=== PATIENT | female | born 1975 | race Caucasian/White ===

== ENCOUNTER → 2016-07-05 | Outpatient (CLI) | payer OTHER ==
[~2016-07-05] MED LIST: ADVIL200 M1; BUSPAR PO; CALCIUM 1,0001 EACH PO; CARAFATE1 GM PO; CINNAMON ALPHA1 EACH PO; CINNAMON3.7 ML; HYDROCODON-ACE1 EAC9 PO; KEFLEX500 M1 PO; KRILL OIL500 MG PO; LANTUS100 U/ML SUBQ; LEXAPRO5 MG PO; LORTAB 5-325 M1 EACH PO; METFORMIN PO; NICAZEL TABLET1 EACH PO; NOVOLOG100 UNITS/ SUBQ; PAIN RELIEF325 MG PO; PENTASA250 MG PO; PHENERGAN25 M1 PO; PRILOSEC PO; TOPROL XL PO; VISTARIL50 MG PO; VITAMIN C250 M1 PO; [UNRECOGNIZED DRUG - REMARK] PO
--- NOTE | ~2016-07-05 | MY14 ---
[facility] A Service of [facility] RADIOLOGY TEXT RESULTS PATIENT: JONATHON HEBERT LOCATION: [facility] : 74 UNIT #: [id number] AGE: [address]: Favio Dawson MD SEX: F ORDER DR: [id number] [place], [place] [address] [id number] O MR#: [id number] Acc #: [id number] NAME: JONATHON HEBERT : 1975 SEX: F STUDY DATE/TIME: 07/05/2016 12:30 UNIT: [facility] ROOM: STUDY DESCRIPTION: MY Post Bx Film Attending Physician: Favio Dawson M.D. Referring Physician: Favio Dawson M.D. Ordering Physician: Favio Dawson M.D. Primary Care Physician: Favio Dawson M.D. MEDICAL IMAGING REPORT This report is preliminary unless electronic signature is present EXAM Left digital diagnostic mammogram COMPARISON Ultrasound-guided biopsy of the left breast on the same date as well as left breast ultrasound and bilateral diagnostic mammogram dated May 01, 2017. INDICATIONS 41-year-old female post ultrasound-guided biopsy of a suspicious left breast mass. Evaluation of biopsy clip placement. FINDINGS The biopsy clip is adequately positioned near the posterior aspect of the suspicious mass. There is no significant postbiopsy hematoma. IMPRESSION Adequate position of biopsy clip post ultrasound-guided sampling of suspicious left breast mass. BIRADS: Post procedure mammograms for marker placement. Dictated by... Jag Ellis M.D. THIS IS AN ELECTRONICALLY VERIFIED REPORT Jag Ellis M.D. at 07/07/2016 1:49 PM IRENE/ariela TD: 07/05/2016 23:14 JOB #: [id number] [facility] A Service of [facility] RADIOLOGY TEXT RESULTS PATIENT: JONATHON HEBERT LOCATION: [facility] : 73 UNIT #: [id number] AGE: [address]: Favio Dawson MD SEX: F ORDER DR: MEDICAL IMAGING REPORT COPY
--- NOTE | ~2016-07-05 | US200 ---
[facility] A Service of [facility] RADIOLOGY TEXT RESULTS PATIENT: JONATHON HEBERT LOCATION: [facility] : 73 UNIT #: [id number] AGE: [address]: Favio Dawson MD SEX: F ORDER DR: [id number] [facility] [address] [place], [place] [address] [id number] O MR#: [id number] Acc #: [id number] NAME: JONATHON HEBERT : 1975 SEX: F STUDY DATE/TIME: 07/10/2016 UNIT: [facility] ROOM: STUDY DESCRIPTION: US Breast Guided Bx 1st Lesion Attending Physician: Favio Dawson M.D. Referring Physician: Favio Dawson M.D. Ordering Physician: Favio Dawson M.D. Primary Care Physician: Favio Dawson M.D. 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 This is concordant with imaging. Given the size of the mass and question of other possible findings in the left breast on sonography, preoperative breast MRI is recommended if breast conservation is being considered. Our breast primary care md office has notified the patient's physician of these findings. Surgical consultation is recommended, and our breast primary care md office has also notified the patient's referring physician of these recommendations. JOB #[id number] Dictated by... Jag Ellis M.D. THIS IS AN ELECTRONICALLY VERIFIED REPORT Jag Ellis M.D. at 07/11/2016 12:56 AM Caden TD: 07/11/2016 00:28 JOB #: [id number] MEDICAL IMAGING REPORT COPY
== END | disposition home or self-care (01) ==
LOC: CWCC 09:59
DX: C50.812 Malignant neoplasm of overlapping sites of left female breast (principal)
CPT/HCPCS: 88305; G0204

== ENCOUNTER → 2016-07-19 | Outpatient (CLI) | payer OTHER ==
--- NOTE | ~2016-07-19 | NM8 ---
[facility] A Service of [facility] & [facility] RADIOLOGY TEXT RESULTS PATIENT: JONATHON HEBERT LOCATION: [facility] : 74 UNIT #: [id number] AGE: [address]: Mary Munguia MD SEX: F ORDER DR: [id number] [facility] [address] [place], [place] [address] [id number] O MR#: [id number] Acc #: [id number] NAME: JONATHON HEBERT : 1975 SEX: F STUDY DATE/TIME: 07/19/2016 13:38 UNIT: [facility] ROOM: STUDY DESCRIPTION: RI Bone or Joint Whole Body Attending Physician: Mary Munguia M.D. Referring Physician: Mary Munguia M.D. Ordering Physician: Mary Munguia M.D. Primary Care Physician: Favio Dawson M.D. MEDICAL IMAGING REPORT This report is preliminary unless electronic signature is present EXAM Whole-body bone scan HISTORY 41-year-old female recently diagnosed with breast cancer June 2016 now presents for staging and surveillance for metastatic disease. COMPARISON CT chest abdomen and pelvis 07/19/2016 FINDINGS Whole-body and selected spot images were performed of the axial and appendicular skeleton following the intravenous administration of 25.7 mCi technetium 99m MDP. Examination demonstrates normal symmetric uptake within the axial and appendicular skeleton. No abnormal uptake identified to suggest osseous metastatic disease. Mild thoracolumbar scoliosis. Bilateral renal activity and normal bladder activity noted. IMPRESSION No bone scan findings to suggest osseous metastatic disease. Dictated by... Jackelyn Bailey M.D. THIS IS AN ELECTRONICALLY VERIFIED REPORT Jackelyn Bailey M.D. at 07/21/2016 5:01 PM SKINNY/lori TD: 07/20/2016 12:33 JOB #: [id number] MEDICAL IMAGING REPORT COPY
--- NOTE | ~2016-07-19 | CT55 ---
[facility] A Service of [facility] RADIOLOGY TEXT RESULTS PATIENT: JONATHON HEBERT LOCATION: [facility] : 73 UNIT #: [id number] AGE: [address]: Mary Munguia MD SEX: F ORDER DR: [id number] [facility] [address] [place], [place] [address] [id number] O MR#: [id number] Acc #: [id number] NAME: JONATHON HEBERT : 1975 SEX: F STUDY DATE/TIME: 07/19/2016 11:22 UNIT: [facility] ROOM: STUDY DESCRIPTION: CT Chest W Con Attending Physician: Mary Munguia M.D. Referring Physician: Mary Munguia M.D. Ordering Physician: Mary Munguia M.D. Primary Care Physician: Favio Dawson M.D. MEDICAL IMAGING REPORT This report is preliminary unless electronic signature is present EXAM CT chest, 07/19/2016 INDICATION Malignant neoplasm of the lower inner quadrant of the left female breast. Breast cancer. Observation for metastatic disease. Initial CT staging. TECHNIQUE CT of the thorax utilizing 100 mL Isovue-370 IV contrast. Coronal and sagittal reconstructions were obtained. This CT exam was performed with one or more of the following radiation dose reduction techniques: automatic exposure control, adjustment of mA and/or kV according to patient size, and iterative reconstruction. COMPARISON Concurrent CT abdomen and pelvis dated 07/19/2016 and bone scan dated 07/19/2016. FINDINGS No pathologically enlarged mediastinal, hilar, or axillary lymph nodes. No pericardial or pleural effusion. Thoracic aorta is normal in caliber. No suspicious pulmonary findings. Central airways are patent. There is asymmetric mass-like density in the superior left breast corresponding with the patient's known breast malignancy. This area measures up to 5 cm in total diameter. Please refer to a separately dictated report for details on the abdomen. IMPRESSION [facility] A Service of [facility] RADIOLOGY TEXT RESULTS PATIENT: EMILEE,JONATHON LOCATION: [facility] : 73 UNIT #: [id number] AGE: [address]: Mary Munguia MD SEX: F ORDER DR: 1. A 5 cm mass in the superior left breast correlates with the patient's known breast malignancy. 2. No evidence of mediastinal, hilar, or axillary lymph nodes. 3. No evidence of metastatic disease in the chest. Dictated by... Maurilio Davis M.D. THIS IS AN ELECTRONICALLY VERIFIED REPORT Maurilio Davis M.D. at 07/20/2016 8:19 AM OPAL/eliazar TD: 07/19/2016 23:49 JOB #: [id number] MEDICAL IMAGING REPORT COPY
--- NOTE | ~2016-07-19 | CT2 ---
[facility] A Service of [facility] & [facility] RADIOLOGY TEXT RESULTS PATIENT: JONATHON HEBERT LOCATION: [facility] : 73 UNIT #: [id number] AGE: [address]: Mary Munguia MD SEX: F ORDER DR: [id number] [facility] [address] [place], [place] [address] [id number] O MR#: [id number] Acc #: [id number] NAME: JONATHON HEBERT : 1975 SEX: F STUDY DATE/TIME: 07/19/2016 11:22 UNIT: [facility] ROOM: STUDY DESCRIPTION: CT Abd and Pelv W Cont Attending Physician: Mary Munguia M.D. Referring Physician: Mary Munguia M.D. Ordering Physician: Mary Munguia M.D. Primary Care Physician: Favio Dawson M.D. MEDICAL IMAGING REPORT This report is preliminary unless electronic signature is present EXAM CT abdomen and pelvis, 07/19/2016 INDICATIONS Malignant neoplasm of the lower inner quadrant of the left female breast. Malignant neoplasm of the superior left breast. Observation for metastatic disease. Initial CT staging. TECHNIQUE CT of the abdomen and pelvis with p.o. and IV contrast. Coronal and sagittal reconstructions were obtained. This CT exam was performed with one or more of the following radiation dose reduction techniques: Automatic exposure control, adjustment of mA and/or kV according to patient size, and iterative reconstruction. COMPARISON Concurrent CT chest dated 07/19/2016 and bone scan dated 07/19/2016. FINDINGS There is no evidence of metastatic disease in the abdomen or pelvis. Low attenuation throughout the hepatic parenchyma indicates hepatic steatosis. The bowel is not dilated. No enlarged retroperitoneal or mesenteric lymph nodes. Patient has undergone previous right hemicolectomy with subsequent reanastomosis. PELVIS: Uterus and ovaries are unremarkable. There has been prior tubal ligation. Bladder is unremarkable. No enlarged pelvic or inguinal lymph nodes. No acute osseous abnormalities. There is some dextroscoliosis with rotation in the lower thoracic and lumbar spine. No suspicious osseous findings. STS. [facility] A Service of [facility] & [facility] RADIOLOGY TEXT RESULTS PATIENT: JONATHON HEBERT [id number] 73 UNIT #: [id number] AGE: [address]: Mary Munguia MD SEX: F ORDER DR: IMPRESSION 1. No evidence of metastatic disease in the abdomen or pelvis. 2. Low attenuation throughout the liver suggests background steatosis. Dictated by... Maurilio Davis M.D. THIS IS AN ELECTRONICALLY VERIFIED REPORT Maurilio Davis M.D. at 07/20/2016 8:19 AM OPAL/ariela TD: 07/19/2016 23:56 JOB #: [id number] MEDICAL IMAGING REPORT COPY
[2016-07-19 14:06] LABS: POC - CREATININE 1.05 mg/dL (0.44-1.03); POC - GFR >60.0 mL/min (>60)
== END | disposition home or self-care (01) ==
LOC: CNUC 08:33
PROVIDERS: Internal Medicine Hematology
DX: C50.312 Malignant neoplasm of lower-inner quadrant of left female breast (principal); N63 Unspecified lump in breast
CPT/HCPCS: 71260; 74177; 78306; 82565; A9503; Q9967

== ENCOUNTER → 2016-07-27 | Outpatient (CLI) | payer OTHER | END | disposition home or self-care (01) | LOC: SMRI 10:21 | DX: C50.312 Malignant neoplasm of lower-inner quadrant of left female breast (principal); I36.1 Nonrheumatic tricuspid (valve) insufficiency | CPT/HCPCS: 93306 ==

== ENCOUNTER → 2016-07-29 | Outpatient (CLI) | payer OTHER ==
--- NOTE | ~2016-07-29 | MR21 ---
[facility] A Service of [facility] RADIOLOGY TEXT RESULTS PATIENT: JONATHON HEBERT LOCATION: [facility] : 73 UNIT #: [id number] AGE: [address]: Mary Munguia MD SEX: F ORDER DR: [id number] O MR#: [id number] Acc #: [id number] NAME: JONATHON HEBERT : 1975 SEX: F STUDY DATE/TIME: 07/29/2016 16:50 UNIT: [facility] ROOM: STUDY DESCRIPTION: MR Breast WWo Contrast Mohesn Attending Physician: Mary Munguia M.D. Referring Physician: Mary Munguia M.D. Ordering Physician: Mary Munguia M.D. Primary Care Physician: Favio Dawson M.D. MRI CENTER REPORT This report is preliminary unless electronic signature is present. EXAM 1. MRI of bilateral breasts with and without contrast 2. Post processing including computer algorithm analysis of MRI data for lesion detection/characterization, pharmacokinetic analysis, with further physician review for interpretation of breast MRI. COMPARISONS Bilateral diagnostic mammogram dated 07/02/2016 as well as left breast ultrasound dated 07/02/2016. Ultrasound-guided biopsy and postbiopsy left diagnostic mammogram dated 07/05/2016. 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 Evaluation of the extent of malignancy was requested prior to definitive surgical therapy. TECHNIQUE: Axial bilateral T1, STIR, T1 fat saturation precontrast and T1 fat saturation postcontrast dynamic sequences were obtained in addition to sagittal bilateral VIBE precontrast and VIBE postcontrast sequences. Axial post contrast digital subtraction series were provided in addition to 3-D MIPs of each breast. CONTRAST 17 mL MultiHance FINDINGS There are scattered fibroglandular tissue. There is mild bilateral background breast enhancement. The exam is limited by patient motion. [facility] A Service of [facility] RADIOLOGY TEXT RESULTS PATIENT: JONATHON HEBERT LOCATION: [facility] : 73 UNIT #: [id number] AGE: [address]: Mary Munguia MD SEX: F ORDER DR: There are no enhancing masses or areas of suspicious apx-nhrv-kkor enhancement in the right breast. In the central posterior third of the left breast, there is an irregular heterogeneously enhancing mass with irregular and spiculated margins. This contains internal biopsy clip and denotes the patient's known biopsy-proven malignancy. This has jmhmda-jk-[id number] initial kinetics with delayed washout, plateau, and persistent enhancement. This malignant mass measures approximately 3.8 cm by 4.1 cm craniocaudal by 5.2 cm transverse. No axillary or internal mammary adenopathy. No enhancing lesions within the sternum or visualized liver. No abnormal skin enhancement or pectoralis enhancement. IMPRESSION 1. The known malignant mass is in the central posterior third of the left breast measuring 4.1 cm x 3.8 cm x 5.2 cm. There is no evidence of multifocal, multicentric, or contralateral breast malignancy. 2. No axillary or internal mammary adenopathy. No enhancing lesions within the liver or sternum. No abnormal pectoralis muscle enhancement or skin enhancement. BIRADS: 6 Known biopsy; proven malignancy. STAT * RESULT Dictated by... Jag Ellis M.D. THIS IS AN ELECTRONICALLY VERIFIED REPORT Jag Ellis M.D. at 08/03/2016 7:31 AM Sandrine TD: 08/02/2016 11:23 JOB #: [id number] MRI CENTER REPORT Page 1 of 1
== END | disposition home or self-care (01) ==
LOC: SMRI 15:29
DX: C50.312 Malignant neoplasm of lower-inner quadrant of left female breast (principal)
CPT/HCPCS: 0159T; A9581; C8908

== ENCOUNTER → 2016-08-04 | Outpatient (CLI) | payer OTHER ==
--- NOTE | ~2016-08-04 | EKG ---
PATIENT: JONATHON HEBERT UNIT #: [id number] Ventricular Rate: 98 BPM Atrial Rate: 98 BPM P-R Interval: 112 ms QRS Duration: 84 ms Q-T Interval: 354 ms QTC Calculation(Bezet): 451 ms P [place]: 39 degrees Calculated R [place]: 78 degrees Calculated T [place]: 3 degrees Diagnosis Line: Normal sinus rhythm Diagnosis Line: Normal ECG Diagnosis Line: When compared with ECG of 17-OCT-2015 11:18, Diagnosis Line: No significant change was found Diagnosis Line: Confirmed by MARIA DEL CARMEN BUTTERFIELD MD ([id number]) on 08/06/2016 Diagnosis Line: 9:29:38 AM INTERPRETING MD: GREER REED
[2016-08-04 13:01] LABS: BLOOD UREA NITROGEN 11 mg/dL (9-23); BUN/CREATININE RATIO 13.75; CALCIUM SERUM 8.9 mg/dL (8.4-10.2); CARBON DIOXIDE 24 mmol/L (22-31); CHLORIDE 103 mmol/L (100-111); CREATININE SERUM 0.8 mg/dL (0.6-1.4); GLOM FILT RATE Estimated ABOVE60 mL/min (>60); GLUCOSE FASTING 188 mg/dL (70-110); POTASSIUM 3.9 mmol/L (3.5-5.1); SODIUM 133 mmol/L (135-145)
== END | disposition home or self-care (01) ==
LOC: CAMB 11:23
PROVIDERS: Surgery
DX: Z01.818 Encounter for other preprocedural examination (principal)
CPT/HCPCS: 36415; 80048; 93005

== ENCOUNTER 2016-08-11 07:17 | Observation (INO) | payer OTHER ==
--- NOTE | ~2016-08-11 | OR ---
Unit #: [id number] #: [id number] Patient: JONATHON HEBERT [id number] [address] [address] [id number] I MR#: [id number] NAME: JONATHON HEBERT ROOM: 464 Date of Procedure: 08/11/2016 Admission Date: 08/11/2016 Surgeon: Neftali Sauceda M.D. : 1975 Attending Physician: Neftali Sauceda M.D. Referring Physician: Neftali Sauceda M.D. Primary Care Physician: Favio Mann M.D. OPERATIVE REPORT JOB NOTE: CC: CANCER AND BLOOD SPECIALIST AND DR. MANN PREOPERATIVE DIAGNOSIS Large carcinoma of left breast upper aspect with enlarged left axillary nodes on imaging. POSTOPERATIVE DIAGNOSIS Large carcinoma of left breast upper aspect with enlarged left axillary nodes on imaging. PROCEDURES PERFORMED 1. Left mastectomy. 2. Left axillary sentinel lymph node biopsy. 3. Left axillary dissection. ANESTHESIA General endotracheal anesthesia. MERCHANDISE COORDINATOR Lety Manuel, certified medical dosimetrist. FINDINGS The patient was found to have several enlarged nodes in addition to the sentinel node. Additional deep margin of pectoralis major muscle on the left side. FLUIDS 1000 mL crystalloid. ESTIMATED BLOOD LOSS 20 mL. DRAINS Vicente-Fleming 10 mm flat x2. TUBES None. SPECIMENS Sent to pathology. COMPLICATIONS Unit #: [id number] #: [id number] Patient: JONATHON HEBERT None apparent. CONDITION The patient tolerated the procedure well. INDICATIONS FOR PROCEDURE The patient is a 41-year-old white female, who was recently found to have a large mass in the left breast upper aspect. There was a second nodule found suspicious for multifocality and an enlarged node in the left axilla. She was presented with the several options. However, we feel because of multifocality, its size and enlarged node in the left axilla that we recommend proceeding with left mastectomy with left axillary sentinel lymph node biopsy. DESCRIPTION OF PROCEDURE After obtaining informed consent as well as receiving preoperative antibiotics, the patient who earlier in the day had undergone radioactive sulfur colloid injection beneath the left nipple-areolar complex, she was brought to the operating room. After adequate general endotracheal anesthesia was obtained, had sterile injection of Lymphazurin blue beneath the left nipple-areolar complex, it was massaged for 5 minutes by the clock. At this point in time, her left breast, chest, and axilla were prepped and draped in a sterile fashion. An elliptical incision was made with a knife making the upper incision above the area of the palpable mass and the inferior incision below the area of the palpable mass. It was taken down through the skin with a knife into the subdermal and subcutaneous tissues with electrocautery. A superior flap was raised to the level of the pectoralis major musculature. An inferior flap was raised to the lower chest wall. The breast was removed from medial to lateral at the level of the pectoralis major fascia with the fascia being taken with the specimen. In the area where the palpable mass was present, an additional deep margin and pectoralis major muscle was taken with electrocautery with good hemostasis. Hemostasis was also obtained with micro clips and 3-0 Vicryl suture ligatures. As the breast was removed from medial to lateral, the axillary contents were entered. Using the Neoprobe as a guide, a large node was found. However, there were multiple other enlarged nodes were found. They were present. The sentinel node was sent separately, however, additional palpable enlarged nodes were sent en bloc with the specimen. Hemostasis was obtained with micro clips and medium-sized clips and 3-0 Vicryl ties. The specimen was oriented for the pathologist and sent to pathology. The wound was copiously irrigated. All irrigation was evacuated. Good hemostasis was confirmed in all areas of dissection. Two 10-flat Vicente-Fleming drains were placed through separate stab incisions. One was placed over the pectoralis major muscle. The other was placed into the axilla. Each was secured with 3-0 silk suture. The subdermal tissues were reapproximated with a running 3-0 Vicryl suture. The skin was closed with 4-0 Vicryl subcuticular stitch. Benzoin and Steri-Strips were applied over the wound in an occlusive manner followed by fluffs in the concavity of the axilla and over the incision, Kerlix wrap around the chest wall and Shan wrap, and split dressings to the drains. Needle counts, sponge counts, and instrument counts were all correct as reported by the scrub nurse x2. The patient in stable condition. Dictated by... Neftali Sauceda M.D. Unit #: [id number] #: [id number] Patient: JONATHON HEBERT GREGORIA/jorge luis TD: 08/12/2016 01:52 JOB #: [id number] CC: [facility] OPERATIVE REPORT Page 1 of 1 X Neftali Sauceda MD X PROCEDURE OPERATIVE NOTE
--- NOTE | ~2016-08-11 | NM79 ---
[facility] A Service of [facility] & [facility] RADIOLOGY TEXT RESULTS PATIENT: JONATHON HEBERT LOCATION: [facility] 464-01 : [birth year] UNIT #: [id number] AGE: [address]: Neftali Sauceda MD SEX: F ORDER DR: [id number] [address] [facility] [place], [place] [address] [id number] O MR#: [id number] Acc #: [id number] NAME: JONATHON HEBERT : 1975 SEX: F STUDY DATE/TIME: 08/11/2016 8:37 UNIT: [facility] ROOM: STUDY DESCRIPTION: NM North Java Node Inj Attending Physician: Neftali Sauceda M.D. Ordering Physician: Neftali Sauceda M.D. Primary Care Physician: Favio Dawson M.D. MEDICAL IMAGING REPORT This report is preliminary unless electronic signature is present REVISED REPORT EXAM North [place] node injection. INDICATIONS Left breast cancer. PROCEDURE Procedure was discussed with the patient. Questions were answered. Then the periareolar scan was prepped with alcohol pad. 600 uCi technetium 99 filtered sulfur colloid was injected in 4 equal subdermally injections in the periareolar region. No immediate complications. IMPRESSION Left breast [place] node injection. No immediate complication. Dictated by... Russell Champagne M.D. THIS IS AN ELECTRONICALLY VERIFIED REPORT Russell Champagne M.D. at 08/12/2016 9:38 AM Lauren TD: 08/11/2016 10:47 JOB #: [id number] MEDICAL IMAGING REPORT Page 1 of 1 COPY
[~2016-08-11 07:17] MED LIST changes: -ADVIL200 M1; -BUSPAR PO; -CARAFATE1 GM PO; -CINNAMON ALPHA1 EACH PO; -HYDROCODON-ACE1 EAC9 PO; -KEFLEX500 M1 PO; -KRILL OIL500 MG PO; -LANTUS100 U/ML SUBQ; -LEXAPRO5 MG PO; -LORTAB 5-325 M1 EACH PO; -METFORMIN PO; -NOVOLOG100 UNITS/ SUBQ; -PAIN RELIEF325 MG PO; -PHENERGAN25 M1 PO; -PRILOSEC PO; -TOPROL XL PO; -VITAMIN C250 M1 PO; -[UNRECOGNIZED DRUG - REMARK] PO
[2016-08-11] MEDS ORDERED: BUSPAR PO (07:57)
[2016-08-12] MEDS ORDERED: PAIN RELIEF325 MG PO (08:09)
[2016-08-12] MEDS ORDERED: KEFLEX500 M1 PO (08:11)
[2016-08-23] MEDS ORDERED: LEXAPRO5 MG PO (07:56)
[2016-08-23] MEDS ORDERED: HYDROCODON-ACE1 EAC9 PO (08:09)
[2016-08-23] MEDS ORDERED: PHENERGAN25 M1 PO (08:11)
[2016-08-23] MEDS ORDERED: ADVIL200 M1 (12:01)
[2016-08-23] MEDS ORDERED: METFORMIN PO (13:15)
[2016-08-23] MEDS ORDERED: LANTUS100 U/ML SUBQ (13:16)
[2016-08-23] MEDS ORDERED: KRILL OIL500 MG PO (13:17)
[2016-08-23] MEDS ORDERED: CINNAMON ALPHA1 EACH PO (14:44)
[2016-08-23] MEDS ORDERED: BUSPAR PO (14:45)
[2016-08-23] MEDS ORDERED: CALCIUM 1,0001 EACH PO (14:47)
== END 2016-08-12 09:37 | disposition home or self-care (01) ==
LOC: CSUR 07:17 → C4C 12:15
DX: C50.812 Malignant neoplasm of overlapping sites of left female breast (principal); Z17.0 Estrogen receptor positive status [ER+]; R59.0 Localized enlarged lymph nodes; N60.22 Fibroadenosis of left breast; N60.82 Other benign mammary dysplasias of left breast; I10 Essential (primary) hypertension; E11.9 Type 2 diabetes mellitus without complications; Z79.4 Long term (current) use of insulin; Z79.84 Long term (current) use of oral hypoglycemic drugs; J30.9 Allergic rhinitis, unspecified; E66.9 Obesity, unspecified; Z68.32 Body mass index [BMI] 32.0-32.9, adult; K50.90 Crohn's disease, unspecified, without complications; Z90.49 Acquired absence of other specified parts of digestive tract
CPT/HCPCS: 82947; 88307; 88309; 94010; 94760; 94761; A9541; G0378; J0330; J0690; J1100; J1170; J1885; J2250; J2370; J2405; J2710; J3010

== ENCOUNTER → 2016-08-23 | Outpatient (CLI) | payer OTHER ==
[~2016-08-23] MED LIST changes: +ADVIL200 M1; +BUSPAR PO; +CARAFATE1 GM PO; +CINNAMON ALPHA1 EACH PO; +HYDROCODON-ACE1 EAC9 PO; +KEFLEX500 M1 PO; +KRILL OIL500 MG PO; +LANTUS100 U/ML SUBQ; +LEXAPRO5 MG PO; +LORTAB 5-325 M1 EACH PO; +METFORMIN PO; +NOVOLOG100 UNITS/ SUBQ; +PAIN RELIEF325 MG PO; +PHENERGAN25 M1 PO; +PRILOSEC PO; +TOPROL XL PO; +VITAMIN C250 M1 PO; +[UNRECOGNIZED DRUG - REMARK] PO
--- NOTE | ~2016-08-23 | XA91 ---
[facility] A Service of [facility] & [facility] RADIOLOGY TEXT RESULTS PATIENT: JONATHON HEBERT LOCATION: CIVR : 73 UNIT #: [id number] AGE: [address]: Mary Munguia MD SEX: F ORDER DR: [id number] [facility] [address] [place], [place] [address] [id number] O MR#: [id number] Acc #: [id number] NAME: JONATHON HEBERT : 1975 SEX: F STUDY DATE/TIME: 08/23/2016 9:15 UNIT: CIVR ROOM: STUDY DESCRIPTION: XA CVC Tunneled W Port Attending Physician: Mary Munguia M.D. Ordering Physician: Mary Munguia M.D. Primary Care Physician: Favio Dawson M.D. MEDICAL IMAGING REPORT This report is preliminary unless electronic signature is present EXAM Mediport placement INDICATIONS Breast cancer. This was identified on a mammogram performed 07/02/2016, when she was noted to have a large left breast mass. PROCEDURE The procedure was explained to the patient including risks, benefits, potential complications, potential for alternative forms of treatment. Informed consent was obtained and prior to initiating the procedure, a formal time-out procedure was performed. Using all elements of maximal sterile barrier technique including hand hygiene, caps, sterile gowns, gloves and masks, the right neck and chest were prepped with 2% chlorhexadine for cutaneous antisepsis and covered with large sterile sheet. Real-time sterile ultrasound guidance was used to localize the right internal jugular vein which was found be patent and compressible. A hard copy ultrasound image was obtained. After local anesthesia with 1% Xylocaine the vein was punctured using real-time ultrasound guidance and an 0.018 guidewire was advanced into the superior vena cava. Micropuncture sheath was placed and a J-wire was advanced into the inferior vena cava under fluoroscopic guidance. Skin and subcutaneous tissue of the right anterolateral chest wall were anesthetized with buffered lidocaine and lidocaine with epinephrine. A small skin incision was made. Port pocket was created using a combination of blunt and sharp dissection. The port was seated within the pocket and secured using two 3-0 Vicryl sutures and then was tunneled up through the right anterolateral chest wall to the insertion site at the neck. A peel-away sheath was advanced over the wire; the catheter was measured and trimmed, it was advanced through the peel-away sheath and was positioned within the superior vena cava. Following placement of the catheter, it flushed and aspirated easily and its position was confirmed with a [facility] A Service of [facility] RADIOLOGY TEXT RESULTS PATIENT: JONATHON HEBERT LOCATION: CIVR : 73 UNIT #: [id number] AGE: [address]: Mary Munguia MD SEX: F ORDER DR: radiographic image. Deep layer of the port pocket was closed using interrupted 3-0 Vicryl sutures and a running 4-0 Monocryl suture was used to close the skin. The insertion site at the neck was closed using a single 4-0 Monocryl suture and Dermabond was applied to both wounds to act as a dressing. Total fluoroscopy time was 0.1 minutes, AK was 1 mGy. The patient did receive conscious sedation consisting of versed and fentanyl and a total of 60 minutes of monitoring was provided by the IVR nurses. IMPRESSION Successful placement of a right internal jugular vein MediPort, which terminates in the superior vena cava. This catheter is ready for immediate use. Ultrasound and fluoroscopy were used in placement of the catheter and permanent images were saved. Dictated by... Diana Hassan M.D. THIS IS AN ELECTRONICALLY VERIFIED REPORT Diana Hassan M.D. at 08/26/2016 12:59 PM AFF/to TD: 08/25/2016 19:17 JOB #: [id number] MEDICAL IMAGING REPORT Page 1 of 1 COPY
[2016-08-23 07:34] LABS: HEMATOCRIT 38.4 % (35.0-45.0); HEMOGLOBIN 13.1 gm/dL (12.0-16.0); MEAN CELL VOLUME 92.8 FL (83-96); MEAN CORPUSCULAR HEMOGLOBIN 31.8 PG (28-34); MEAN CORPUSCULAR HGB CONC 34.3 g/dL (30-36); MEAN PLATELET VOLUME 7.1 FL (6.5-11.5); RED BLOOD COUNT 4.13 X10e (3.90-5.30); RED CELL DISTRIBUTION WIDTH 12.7 % (11.0-15.5); WHITE BLOOD COUNT 6.8 X10e3 (4.0-10.5)
[2016-08-23 08:04] LABS: PARTIAL THROMBOPLASTIN TIME 22.2 SECONDS (23.5-31.3); PROTHROMBIN TIME (PATIENT) 10.1 SECONDS (9.6-11.5)
== END | disposition home or self-care (01) ==
LOC: CIVR 06:52
PROVIDERS: Internal Medicine Hematology
DX: Z45.2 Encounter for adjustment and management of vascular access device (principal); C50.312 Malignant neoplasm of lower-inner quadrant of left female breast; Z17.0 Estrogen receptor positive status [ER+]
CPT/HCPCS: 36415; 76937; 77001; 85027; 85610; 85730; C1788; J0690; J1642; J2250; J2405; J3010

== ENCOUNTER → 2016-10-15 | Outpatient (CLI) | payer OTHER | END | disposition home or self-care (01) | LOC: CECH 09:19 | DX: C50.312 Malignant neoplasm of lower-inner quadrant of left female breast (principal) | CPT/HCPCS: 93306 ==

== ENCOUNTER → 2016-11-22 | Outpatient (CLI) | payer OTHER | END | disposition home or self-care (01) | LOC: CECH 09:48 | DX: C50.312 Malignant neoplasm of lower-inner quadrant of left female breast (principal) | CPT/HCPCS: 93306 ==

== ENCOUNTER 2016-11-27 09:16 | Observation (INO) | payer OTHER ==
[~2016-11-27] VITALS: Ht 160 cm; Wt 84.6 kg
--- NOTE | ~2016-11-27 | EKG ---
PATIENT: JONATHON HEBERT UNIT #: [id number] Ventricular Rate: 247 BPM Atrial Rate: 250 BPM QRS Duration: 174 ms Q-T Interval: 170 ms QTC Calculation(Bezet): 344 ms Calculated R [place]: 72 degrees Calculated T [place]: 0 degrees Diagnosis Line: Wide QRS tachycardia Supraventricular tachycardia Diagnosis Line: Non-specific intra-ventricular conduction block Diagnosis Line: Abnormal ECG Diagnosis Line: When compared with ECG of 04-AUG-2016 11:44, Diagnosis Line: Wide QRS tachycardia has replaced Sinus rhythm Diagnosis Line: Vent. rate has increased BY 149 BPM Diagnosis Line: Confirmed by SANDEEP GAGE MD ([id number]) on Diagnosis Line: 11/27/2016 2:03:07 PM INTERPRETING MD: MERARI REED
--- NOTE | ~2016-11-27 | CT16 ---
[facility] A Service of [facility] RADIOLOGY TEXT RESULTS PATIENT: JONATHON HEBERT LOCATION: [facility] [address] : [birth year] UNIT #: [id number] AGE: [address]: Debbie Harris MD SEX: F ORDER DR: [id number] [facility] [address] [place], [place] [address] [id number] E MR#: [id number] Acc #: [id number] NAME: JONATHON HEBERT : 1975 SEX: F STUDY DATE/TIME: 11/27/2016 11:25 UNIT: [facility] ROOM: STUDY DESCRIPTION: CT Angio Chest for PE Attending Physician: Esteban Cardenas M.D. Ordering Physician: [facility] Primary Care Physician: Favio Dawson M.D. MEDICAL IMAGING REPORT This report is preliminary unless electronic signature is present EXAM CT chest PE protocol INDICATIONS Shortness of breath. Elevated heart rate. Heart palpitations this morning. TECHNIQUE CT scan of the chest was performed following administration of IV contrast using the pulmonary embolism protocol. Coronal and sagittal reformatted images were obtained. This CT exam was performed with one or more of the following radiation dose reduction techniques: automatic exposure control, adjustment of mA and/or kV according to patient size, and iterative reconstruction. COMPARISON STUDIES Comparison made with 07/19/2016. FINDINGS There is no evidence for pulmonary embolism. Patient has had an interval mastectomy on the left. There is no suspicious lymphadenopathy. There is some mild esophageal thickening which is nonspecific and may be due to esophagitis, particularly if the patient is receiving chemotherapy. There is no airspace consolidation or suspicious pulmonary nodule. Limited imaging of the upper abdomen shows fatty infiltration of the liver. The bone windows are unremarkable. IMPRESSION 1. No evidence of pulmonary embolism. 2. Interval left mastectomy. 3. Mild esophageal thickening diffusely. This could be due to [facility] A Service of [facility] & [facility] RADIOLOGY TEXT RESULTS PATIENT: JONATHON HEBERT LOCATION: [facility] 547[address]01 : [birth year] UNIT #: [id number] AGE: [address]: Debbie Harris MD SEX: F ORDER DR: esophagitis, particularly if patient is undergoing chemotherapy. Dictated by... Catalino Bailey M.D. THIS IS AN ELECTRONICALLY VERIFIED REPORT Catalino Bailey M.D. at 11/28/2016 12:09 PM ARS/pcl TD: 11/27/2016 14:35 JOB #: [id number] MEDICAL IMAGING REPORT Page 1 of 1 COPY
--- NOTE | ~2016-11-27 | DS ---
Unit #: [id number] #: [id number] Patient: JONATHON HEBERT [id number] [address] [address] [id number] I MR#: [id number] NAME: JONATHON HEBERT ROOM: 54 Age: 41 Sex: F Admission Date: 11/27/2016 : 1975 Discharge Date: 11/28/2016 Attending Physician: Debbie Harris M.D. Primary Care Physician: Favio Dawson M.D. DISCHARGE SUMMARY PRIMARY CARE PROVIDER Favio Dawson M.D. PRINCIPAL DIAGNOSES 1. Supraventricular tachycardia symptomatic, status post adenosine x1 and now maintained in normal sinus rhythm. 2. Chest pain secondary to supraventricular tachycardia. 3. Left-sided breast cancer, currently undergoing chemotherapy and is status post mastectomy. 4. Normocytic anemia. 5. Mild protein malnutrition. 6. Diabetes mellitus type 2, insulin requiring, uncontrolled. 7. Chemotherapy-induced esophagitis. CONSULTANTS Dr. Hill, Cardiology. PROCEDURES 1. Chest x-ray on 11/27/[address]. [address] angiogram of the chest on 11/27/2016 with no evidence of PE, mild esophageal thickening diffusely noted. CLINICAL HISTORY AND HOSPITAL COURSE Ms. Hebert is a 41-year-old female, who presents to the emergency department with complaints of chest pain. She was found to be in SVT, received a single dose of adenosine, and subsequently converted to normal sinus rhythm. She was placed in observation overnight to further evaluate. The patient was seen by Cardiology who placed her on a low-dose of metoprolol. Again, she has been maintained in normal sinus rhythm throughout the evening. Plan is for her to continue Toprol and she will follow up with Dr. Mckeon as an outpatient for EP studies. CT of the chest did reveal some esophagitis, which the patient states she has reflux and has only been since her chemotherapy. She is already on a PPI therapy and Carafate without any difficulty swallowing. I think it is safe to discharge her home. This can be further evaluated on an outpatient basis if becomes more symptomatic. DISCHARGE CONDITION Stable. Unit #: [id number] #: [id number] Patient: EMILEE,JONATHON KALLIE DISCHARGE STATUS Discharged to home. DISCHARGE MEDICATIONS Lexapro 10 mg daily, metformin 500 mg b.i.d., Phenergan 25 mg p.o. q.6 hours p.r.n. for nausea, metoprolol succinate 25 mg daily, NovoLog 10 units subcutaneous t.i.d. with meals, Lantus 20 units subcutaneously at bedtime, Carafate 1 g p.o. q.i.d., Lortab 5/325 one tablet b.i.d., cinnamon alpha lipoic acid capsule 1000 mg daily, Prilosec 40 mg daily, calcium plus D3 of 1000 mg one capsule three times weekly, ascorbic acid 250 mg daily, vitamin D of 50,000 units on Tuesday, Tuesday, Tuesday. DISCHARGE INSTRUCTIONS The patient was instructed to follow a constant carb diet. She will continue Accu-Cheks as she was doing home previously. She can increase her activity as tolerated. FOLLOWUP The patient will follow up with Dr. Mckeon in 2 to 3 weeks as instructed. She will follow up with Oncology tomorrow given she is to begin Taxol treatment tomorrow. Dictated by... Debbie Harris M.D. MELANIE/jorge luis TD: 12/01/2016 08:13 JOB #: [id number] DISCHARGE SUMMARY Page 1 of 1 X Debbie Harris MD DISCHARGE SUMMARY
--- NOTE | ~2016-11-27 | CR72 ---
[facility] A Service of [facility] & [facility] RADIOLOGY TEXT RESULTS PATIENT: JONATHON HEBERT LOCATION: [facility] : [birth year] UNIT #: [id number] AGE: [address]: Esteban Dobson MD SEX: F ORDER DR: [id number] [facility] [address] [place], [place] [address] [id number] E MR#: [id number] Acc #: [id number] NAME: JONATHON HEBERT : 1975 SEX: F STUDY DATE/TIME: 11/27/2016 10:16 UNIT: [facility] ROOM: STUDY DESCRIPTION: CR Chest Single View Portable Attending Physician: Esteban Dobson M.D. Ordering Physician: [facility] Primary Care Physician: Favio Dawson M.D. MEDICAL IMAGING REPORT This report is preliminary unless electronic signature is present EXAM Single view chest INDICATIONS Chest pain for 1 day. Tachycardia. FINDINGS Single portable AP view of the chest compared to CT chest 07/19/2016. Heart and mediastinal contours normal. Lungs are clear. IMPRESSION Negative chest radiograph. Dictated by... Maurilio Davis M.D. THIS IS AN ELECTRONICALLY VERIFIED REPORT Maurilio Davis M.D. at 11/27/2016 2:18 PM RPC/pcl TD: 11/27/2016 13:15 JOB #: [id number] MEDICAL IMAGING REPORT Page 1 of 1 COPY
--- NOTE | ~2016-11-27 | HP ---
Unit #: [id number] #: [id number] Patient: JONATHON HEBERT [id number] [address] [address] [id number] I MR#: [id number] NAME: JONATHON HEBERT ROOM: 547 Age: 41 Sex: F Admission Date: 11/27/2016 : 1975 Attending Physician: Debbie Harris M.D. Primary Care Physician: Favio Dawson M.D. HISTORY AND PHYSICAL CHIEF COMPLAINT Chest pain. HISTORY OF PRESENT ILLNESS The patient is a 41-year-old female, with history of breast cancer, status post left mastectomy on July 2016, and on chemotherapy, presented to the emergency room complaining of the chest pain. The patient had her last chemo on November 15, and the patient was going to work and started having chest pain, associated with palpitations. The patient was found to be in SVT in the emergency room and received a onetime dose of adenosine 6 mg x1. The patient had a CT of the chest that showed esophagitis and the patient has been admitted for the above reasons. The patient denies any nausea, vomiting, or diaphoresis. PAST MEDICAL HISTORY Significant for diabetes and coronary artery disease, and the breast cancer. PAST SURGICAL HISTORY Status post tubal ligation, colon resection, breast biopsy, status post left mastectomy. ALLERGIES No known drug allergies. SOCIAL HISTORY No history of smoking cigarettes, tobacco, or alcohol use. FAMILY HISTORY None. MEDICATIONS The patient is on: 1. Glucophage 2. Lantus 3. Lexapro 4. Phenergan 5. Cinnamon Alpha 6. Calcium 7. Prilosec 8. Vitamin C 9. NovoLog 10. Lortab 11. Magic mouth wash Unit #: [id number] #: [id number] Patient: JONATHON HEBERT REVIEW OF SYMPTOMS Fourteen-point review of symptoms performed and only pertinent positive findings as described above, remaining are negative. PHYSICAL EXAMINATION GENERAL APPEARANCE: On examination the patient is lying on a bed not in acute distress. VITAL SIGNS: Temperature is 97.8, pulse __, respiratory rate 16, blood pressure 138/70, sating 100% at two liters nasal cannula. HEENT: Head atraumatic and normocephalic. Pupils equal, round and reacting to light and accommodation. Extraocular movements are intact. NECK: Supple. LUNGS: Decreased air entry at the bases. HEART: Regular rate and rhythm. ABDOMEN: Soft, positive bowel sounds. EXTREMITIES: No cyanosis. No clubbing. NEUROLOGIC: Awake, alert and oriented. No gross focal motor deficit. DIAGNOSTIC STUDIES LAB DATA: Glucose 165. WBC 7.2, hemoglobin 8.9, hematocrit 26.1, platelets 146, sodium 139, potassium 3.7, chloride 111, bicarb 21, glucose 95, BUN 11, creatinine 0.7, AST 27, ALT 32, BNP 92. IMAGING: CT of the anterior chest shows no evidence of PE, left mastectomy, mild esophageal thickening, diffusely, this could be due to esophagitis particularly if the patient is undergoing chemotherapy. Chest x-ray shows negative chest x-ray, showed wide QRS tachycardia, supraventricular tachycardia. ASSESSMENT/PLAN 1. SVT. 2. Esophagitis. 3. History of breast cancer and chemo. Plan to admit to the patient to observation, patient returned to sinus rhythm after adenosine, and will have the cardiology consult, and the echocardiogram, and repeat followup with troponins to rule out ischemia, and the patient will be started on Protonix for the esophagitis, and further recommendations to follow. Dictated by Zuly Sawant/ronal TD: 11/28/2016 09:05 JOB #: [id number] Unit #: [id number] #: [id number] Patient: JONATHON HEBERT HISTORY AND PHYSICAL Page 1 of 1 X LOBITO MERCADO MD X HISTORY AND PHYSICAL
--- NOTE | ~2016-11-27 | EKG ---
PATIENT: JONATHON HEBERT UNIT #: [id number] Ventricular Rate: 110 BPM Atrial Rate: 110 BPM P-R Interval: 112 ms QRS Duration: 80 ms Q-T Interval: 332 ms QTC Calculation(Bezet): 449 ms P [place]: 38 degrees Calculated R [place]: 77 degrees Calculated T [place]: -44 degrees Diagnosis Line: Sinus tachycardia Diagnosis Line: ST and T wave abnormality, consider inferior Diagnosis Line: ischemia Diagnosis Line: Abnormal ECG Diagnosis Line: When compared with ECG of 27-NOV-2016 09:23, Diagnosis Line: (unconfirmed) Diagnosis Line: Sinus rhythm has replaced Wide QRS tachycardia Diagnosis Line: Vent. rate has decreased BY 137 BPM Diagnosis Line: Confirmed by SANDEEP GAGE MD ([id number]) on Diagnosis Line: 11/27/2016 2:03:14 PM INTERPRETING MD: MERARI REED
--- NOTE | ~2016-11-27 | CO ---
Unit #: [id number] #: [id number] Patient: JONATHON HEBERT [id number] [address] [address] [id number] I MR#: [id number] NAME: JONATHON HEBERT ROOM: 547 Age: 41 Sex: F Admission Date: 11/27/2016 : 1975 Attending Physician: Debbie Harris M.D. Primary Care Physician: Favio Dawson M.D. CONSULTATION REPORT REASON FOR CONSULTATION PSVT and chest pain. HISTORY OF PRESENT ILLNESS This is a 41-year-old white female, who presented to the emergency room with a complaint of substernal and left anterior chest pressure, palpitations, and dyspnea while she was working yesterday. Her symptoms were ongoing for 40 minutes. On arrival to the emergency room, her heart rate was elevated to 247 beats per minute that was treated with adenosine 6 mg IV to terminate the rhythm. Her chest pain resolved. In 10/2015, she was seen by Dr. Berkowitz and had a similar episode of paroxysmal supraventricular tachycardia. She has not followed up with Cardiology. She denies any complaints of chest pain, palpitations, or dizziness that occurs with activities. She has recently diagnosed with left breast cancer in 07/2016 and underwent left mastectomy. She is currently undergoing chemotherapy. She has had several echocardiograms done since started on chemotherapy and she has normal left ventricular systolic function. Her troponin is negative with no acute ischemic changes on EKG. She has risk factors for ischemic heart disease includes diabetes and a family history of premature coronary artery disease. She has had no prior cardiac testing. PAST MEDICAL HISTORY 1. 2D echocardiogram on 11/22/2016 showed an ejection fraction of 55% with trace tricuspid regurgitation. 2. Paroxysmal supraventricular tachycardia. 3. Crohn disease. 4. Diabetes mellitus, type 2. 5. Left breast cancer, status post left mastectomy undergoing chemotherapy. 6. Nonsmoker. PAST SURGICAL HISTORY 1. As stated above. 2. Tubal ligation. 3. Colon resection. 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 She is very active. She has 2 young children. She has no history of alcohol, tobacco, or illicit drug use. FAMILY HISTORY Unit #: [id number] #: [id number] Patient: JONATHON HEBERT Both parents had heart disease and myocardial infarction. ALLERGIES No known drug allergies. HOME MEDICATIONS Glucophage 500 mg b.i.d., Lantus 20 units subcu q.h.s., Lexapro 10 mg daily, promethazine 25 mg q.6 hours p.r.n., cinnamon bark 1000 mg daily, calcium 1000 mg plus vitamin D3 one cap three times a week, Prilosec 40 mg daily, vitamin C 250 mg daily, NovoLog 10 units subcu t.i.d. a.c. and meals, Lortab 5/325 one tablet b.i.d., Jessie's Magic Mouthwash q.6 hours p.r.n. REVIEW OF SYSTEMS CONSTITUTIONAL: Negative for fever or chills. Reports a recent weight gain. No weight loss. HEENT: No headache, hearing or vision changes, difficulty with swallowing. No dizziness. CARDIOVASCULAR: Has chest pressure and palpitations according to the HPI. No paroxysmal nocturnal dyspnea or orthopnea. No syncope or near syncope. RESPIRATORY: Had dyspnea that accompanies chest pain. No cough or hemoptysis. GASTROINTESTINAL: Has occasional nausea. No constipation, vomiting, or abdominal discomfort. No melena, hematochezia, or hematemesis. EXTREMITIES: Negative for lower extremity edema. PHYSICAL EXAMINATION VITAL SIGNS: Blood pressure 110/72, heart rate 102, temperature 98.1. GENERAL: This is a pleasant 41-year-old mildly obese, white female, who is in no acute respiratory distress. NEUROLOGIC: She is awake, alert, and oriented. There are no focal weaknesses. NECK: Trachea is midline. No thyromegaly. No lymphadenopathy. No jugular distention. HEART: S1, S2. Heart sounds are normal. No murmurs. No rubs or clicks. Regular rate and rhythm. LUNGS: Clear without rales, rhonchi, or wheeze. ABDOMEN: Soft and nontender with bowel sounds are present. No organomegaly. EXTREMITIES: Pedal pulses are palpable without leg edema. SKIN: Warm and dry. DIAGNOSTIC STUDIES LABORATORY RESULTS: Hemoglobin 8.5, hematocrit 24.8, platelet count 151, white count 6.1. Sodium 139, potassium 3.7, BUN 11, creatinine 0.7, glucose 108, troponin 0.03. BNP 92. IMAGING STUDIES: Chest x-ray shows no active disease. CTA of the chest, negative for pulmonary embolism. CARDIOVASCULAR STUDIES: Presenting EKG shows supraventricular tachycardia with a rate of 247 beats per minute. Repeat EKG shows sinus tachycardia with a rate of 110 beats per minute with no acute ischemic changes. ASSESSMENT Unit #: [id number] #: [id number] Patient: JONATHON HEBERT 1. Paroxysmal supraventricular tachycardia. 2. Chest pain secondary to paroxysmal supraventricular tachycardia. 3. History of left breast cancer, status post left mastectomy undergoing chemotherapy. 4. Diabetes mellitus, type 2. 5. Anemia. 6. Preserved left ventricular systolic function, ejection fraction of 55%. PLAN 1. Cardiology was consulted for chest pain and paroxysmal supraventricular tachycardia. The patient's SVT was terminated using adenosine. I will start the patient on beta-lynn for heart rate control. 2. Chest pain is secondary to arrhythmias. The patient has no chest pain with activities. She does have risk factors. Echocardiogram is unremarkable. 3. We will check electrolytes and supplement as appropriate. 4. TSH will be obtained. 5. No further cardiac workup is planned. 6. Further recommendations to follow pending Dr. Berkowitz assessment. Dictated by... Iván Gaona A.P.R.N. for Zuly Mesa/jorge luis TD: 11/29/2016 23:43 JOB #: [id number] CONSULTATION REPORT Page 1 of 1 X Iván Gaona APRN CONSULTATION REPORT
[~2016-11-27 09:16] MED LIST changes: -CARAFATE1 GM PO; -LORTAB 5-325 M1 EACH PO; -NOVOLOG100 UNITS/ SUBQ; -PRILOSEC PO; -TOPROL XL PO; -VITAMIN C250 M1 PO; -[UNRECOGNIZED DRUG - REMARK] PO
[2016-11-27 11:18] LABS: BASOPHIL% 0.1 % (0-2.5); EOSINOPHIL% 0.1 % (0.0-7.0); HEMATOCRIT 26.1 % (35.0-45.0); HEMOGLOBIN 8.9 gm/dL (12.0-16.0); LYMPHOCYTE# 1.1 X10e3 (1.0-3.5); LYMPHOCYTE% 15.7 % (17.0-45.0); MEAN CELL VOLUME 93.8 FL (83-96); MEAN CORPUSCULAR HEMOGLOBIN 32.1 PG (28-34); MEAN CORPUSCULAR HGB CONC 34.2 g/dL (30-36); MEAN PLATELET VOLUME 8.3 FL (6.5-11.5); MONOCYTE# 0.8 X10e3 (0-1.0); MONOCYTE% 11.9 % (3.0-12.0); NEUTROPHIL# 5.2 X10e3 (1.5-7.1); NEUTROPHIL% 72.2 % (40-75); PLATELET COUNT 146 X10e3 (140-420); RED BLOOD COUNT 2.78 X10e (3.90-5.30); RED CELL DISTRIBUTION WIDTH 16.2 % (11.0-15.5); WHITE BLOOD COUNT 7.2 X10e3 (4.0-10.5)
[2016-11-27 11:26] LABS: POC - CREATININE 0.68 mg/dL (0.44-1.03); POC - GFR >60.0 mL/min (>60)
[2016-11-27 11:30] LABS: PARTIAL THROMBOPLASTIN TIME 21.9 SECONDS (23.5-31.3); PROTHROMBIN TIME (PATIENT) 10.7 SECONDS (10.0-11.7)
[2016-11-27 11:31] LABS: DIFF IND YES
[2016-11-27 11:53] LABS: ALBUMIN SERUM 3.5 g/dL (3.5-5.0); ALKALINE PHOSPHATASE 56 U/L (32-92); ALT (SGPT) 32 U/L (10-40); AST (SGOT) 27 U/L (10-42); BILIRUBIN, DIRECT <0.1 mg/dL (0.0-0.2); BILIRUBIN,INDIRECT 0.5 mg/dL (0.0-0.9); BILIRUBIN,TOTAL 0.6 mg/dL (0.2-2.0); BLOOD UREA NITROGEN 11 mg/dL (9-23); BUN/CREATININE RATIO 15.71; CALCIUM SERUM 8.5 mg/dL (8.4-10.2); CARBON DIOXIDE 21 mmol/L (22-31); CHLORIDE 111 mmol/L (100-111); CREATININE SERUM 0.7 mg/dL (0.6-1.4); GLOM FILT RATE Estimated 106.9 mL/min (>60); GLUCOSE FASTING 95 mg/dL (70-110); POTASSIUM 3.7 mmol/L (3.5-5.1); PROTEIN TOTAL SERUM 6.3 g/dL (6.0-8.3); SODIUM 139 mmol/L (135-145)
[2016-11-27 11:59] LABS: NUCLEATED RED BLOOD CELL 1 /100 ([, 0]); OVALOCYTES PRESENT; PLATELET ESTIMATE NORMAL (NORMAL); POLYCHROMASIA SL
[2016-11-27] MEDS ORDERED: PRILOSEC PO (15:30)
[2016-11-27] MEDS ORDERED: VITAMIN C250 M1 PO (15:30)
[2016-11-27] MEDS ORDERED: LORTAB 5-325 M1 EACH PO (15:33)
[2016-11-27] MEDS ORDERED: NOVOLOG100 UNITS/ SUBQ (15:33)
[2016-11-27] MEDS ORDERED: [UNRECOGNIZED DRUG - REMARK] PO (17:00)
[2016-11-27 19:17] LABS: CK TOTAL 31 IU/L (26-140)
[2016-11-28 06:55] LABS: BASOPHIL% 0.3 % (0-2.5); EOSINOPHIL% 0.2 % (0.0-7.0); HEMATOCRIT 24.8 % (35.0-45.0); HEMOGLOBIN 8.5 gm/dL (12.0-16.0); LYMPHOCYTE# 1.2 X10e3 (1.0-3.5); LYMPHOCYTE% 19.1 % (17.0-45.0); MEAN CELL VOLUME 93.8 FL (83-96); MEAN CORPUSCULAR HEMOGLOBIN 32.2 PG (28-34); MEAN CORPUSCULAR HGB CONC 34.4 g/dL (30-36); MEAN PLATELET VOLUME 7.6 FL (6.5-11.5); MONOCYTE# 0.8 X10e3 (0-1.0); MONOCYTE% 13.7 % (3.0-12.0); NEUTROPHIL% 66.7 % (40-75); PLATELET COUNT 151 X10e3 (140-420); RED BLOOD COUNT 2.64 X10e (3.90-5.30); RED CELL DISTRIBUTION WIDTH 16.3 % (11.0-15.5); WHITE BLOOD COUNT 6.1 X10e3 (4.0-10.5)
[2016-11-28 06:57] LABS: DIFF IND NO
[2016-11-28] MEDS ORDERED: CARAFATE1 GM PO (07:07)
[2016-11-28 07:18] LABS: ALBUMIN SERUM 3.4 g/dL (3.5-5.0); BILIRUBIN,TOTAL 0.4 mg/dL (0.2-2.0); BUN/CREATININE RATIO 15.71; CALCIUM SERUM 8.4 mg/dL (8.4-10.2); CREATININE SERUM 0.7 mg/dL (0.6-1.4); GLOM FILT RATE Estimated 106.9 mL/min (>60); POTASSIUM 3.7 mmol/L (3.5-5.1); PROTEIN TOTAL SERUM 6.2 g/dL (6.0-8.3)
[2016-11-28 07:28] LABS: CK TOTAL 30 IU/L (26-140)
[2016-11-28] MEDS ORDERED: TOPROL XL PO (11:28)
[2016-11-29 10:35] LABS: POC - CKMB <1.0 ng/mL (0.0-7.9); POC - TROPONIN <0.05 ng/mL (<=0.05)
== END 2016-11-28 13:43 | disposition home or self-care (01) ==
LOC: CED 09:16 → CEDOF 12:15 → CED 16:06 → CEDOF 16:06 → C5B 16:07
PROVIDERS: Emergency Medicine; Internal Medicine
DX: I47.1 Supraventricular tachycardia (principal); R07.9 Chest pain, unspecified; C50.912 Malignant neoplasm of unspecified site of left female breast; D64.9 Anemia, unspecified; E44.1 Mild protein-calorie malnutrition; E11.65 Type 2 diabetes mellitus with hyperglycemia; Z79.4 Long term (current) use of insulin; K20.8 Other esophagitis; T45.1X5A Adverse effect of antineoplastic and immunosuppressive drugs, initial encounter; Z79.84 Long term (current) use of oral hypoglycemic drugs; Z90.12 Acquired absence of left breast and nipple; Z82.49 Family history of ischemic heart disease and other diseases of the circulatory system
CPT/HCPCS: 36415; 71010; 71275; 80048; 80053; 80076; 82550; 82553; 82565; 82947; 83735; 83880; 84443; 84484; 85025; 85610; 85730; 93005; 96374; 96375; 96376; 99285; C9113; G0378; J0153; J1642; J1815; J2270; Q9967

== ENCOUNTER → 2016-12-20 | Outpatient (CLI) | payer OTHER ==
[~2016-12-20] MED LIST changes: +CARAFATE1 GM PO; +LORTAB 5-325 M1 EACH PO; +NOVOLOG100 UNITS/ SUBQ; +PRILOSEC PO; +TOPROL XL PO; +VITAMIN C250 M1 PO; +[UNRECOGNIZED DRUG - REMARK] PO
[2016-12-20 10:09] LABS: HEMATOCRIT 31.3 % (35.0-45.0); HEMOGLOBIN 10.4 gm/dL (12.0-16.0); MEAN CELL VOLUME 98.9 FL (83-96); MEAN CORPUSCULAR HEMOGLOBIN 32.7 PG (28-34); MEAN CORPUSCULAR HGB CONC 33.1 g/dL (30-36); MEAN PLATELET VOLUME 7.1 FL (6.5-11.5); RED BLOOD COUNT 3.17 X10e (3.90-5.30); RED CELL DISTRIBUTION WIDTH 17.6 % (11.0-15.5)
== END | disposition home or self-care (01) ==
LOC: CSSDAY 09:09
PROVIDERS: Internal Medicine Hematology
DX: Z51.11 Encounter for antineoplastic chemotherapy (principal); C50.312 Malignant neoplasm of lower-inner quadrant of left female breast; Z79.899 Other long term (current) drug therapy
CPT/HCPCS: 85027; 96374; 96375; 96413; J1100; J1200; J1642; J9267